=== PATIENT | male | born 1990 | race Caucasian/White ===

== ENCOUNTER 2017-07-09 01:48 | Emergency (ER) | payer BC, OTHER ==
[~2017-07-09] VITALS: Ht 185.4 cm; Wt 65.8 kg
--- NOTE | 2017-07-09 01:51 | ER Report ---
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 He believes he contracted it approximately 4 days ago. His symptoms got better. He began to refeeding began vomiting again tonight. He developed severe right upper quadrant pain which is unrelieved with Tylenol. Patient has a history of Gilbert's syndrome. Patient notes chills but no fever. He's had no diarrhea. REVIEW OF SYSTEMS: Respiratory: No cough, no dyspnea. Cardiovascular: No chest pain, no palpitations. Gastrointestinal: As above Musculoskeletal: No back pain. Allergies: Coded Allergies: sulfamethoxazole (Verified Allergy, Intermediate, HIVES, 07/09/17) trimethoprim (Verified Allergy, Intermediate, HIVES, 07/09/17) Home Meds Active Scripts Ondansetron Hcl (ZOFRAN) 4 Mg Tablet, 4 MG PO Q6H Y for NAUSEA/VOMITING, #12 Prov:ZACH OROSCO DO 07/09/17 Reviewed Nurses Notes: Yes Old Medical Records Reviewed: Yes Hx Smoking: No Hx Substance Use Disorder: No Hx Alcohol Use: No Constitutional Vital Sign - Last 24 Hours 07/09/17 07/09/17 07/09/17 07/09/17 01:52 02:00 02:03 02:18 Temp 98.7 Pulse 86 76 76 Resp 16 B/P (MAP) 122/81 116/73 (87) Pulse Ox 99 100 99 07/09/17 07/09/17 07/09/17 07/09/17 02:30 02:50 03:00 03:05 Pulse 80 ??? B/P (MAP) 110/71 (84) 109/68 (82) Pulse Ox 99 100 Physical Exam General Appearance: The patient is alert, has no immediate need for airway protection and no current signs of toxicity.. Vital signs stable, afebrile, pulse ox normal, skin pale but warm and dry HEENT: Pupils equal and round no injection. Oropharynx with mild erythema, mucous. Membranes are dry Respiratory: Chest is non tender, lungs are clear to auscultation. Cardiac: regular rate and rhythm Gastrointestinal: Abdomen is soft, mild right upper quadrant tenderness, equivocal Willett sign, no masses, bowel sounds decreased. Musculoskeletal: Neck: Neck is supple and non tender. Extremities have full range of motion and are non tender. Skin: No rashes or lesions. DIFFERENTIAL DIAGNOSIS: After history and physical exam differential diagnosis was considered for abdominal pain including but not limited to appendicitis, cholecystitis, gastritis, gastroenteritis, and urinary tract infection. Medical Decision Making Data Points Result Diagram: 07/09/17 0150 07/09/17 0150 Laboratory Hematology Test 07/09/17 01:50 Red Blood Count 5.49 M/uL (4.00-5.60) Mean Corpuscular Volume 90.5 fL (80.0-96.0) Mean Corpuscular Hemoglobin 31.0 pg (26.0-33.0) Mean Corpuscular Hemoglobin Concent 34.2 g/dL (32.0-36.0) Red Cell Distribution Width 12.9 % (11.5-14.5) Mean Platelet Volume 9.8 fL (7.2-11.1) Neutrophils (%) (Auto) 84.2 % (39.4-72.5) Lymphocytes (%) (Auto) 3.9 % (17.6-49.6) Monocytes (%) (Auto) 9.8 % (4.1-12.4) Eosinophils (%) (Auto) 1.1 % (0.4-6.7) Basophils (%) (Auto) 1.0 % (0.3-1.4) Nucleated RBC Relative Count (auto) 0.0 /100WBC Neutrophils # (Auto) 5.5 K/uL (2.0-7.4) Lymphocytes # (Auto) 0.3 K/uL (1.3-3.6) Monocytes # (Auto) 0.6 K/uL (0.3-1.0) Eosinophils # (Auto) 0.1 K/uL (0.0-0.5) Basophils # (Auto) 0.1 K/uL (0.0-0.1) Nucleated RBC Absolute Count (auto) 0.00 K/uL Urine Color Yellow Urine Clarity Clear Urine pH 5.0 pH (4.8-9.5) Urine Specific [place] 1.024 Urine Protein Negative mg/dL (NEGATIVE) Urine Glucose (UA) Negative mg/dL (NEGATIVE) Urine Ketones 20 mg/dL (NEGATIVE) Urine Blood Negative (NEGATIVE) Urine Nitrite Negative (NEGATIVE) Urine Bilirubin Negative (NEGATIVE) Urine Urobilinogen 2.0 mg/dL (0.2-1.9) Urine Leukocyte Esterase Negative (NEGATIVE) Urine RBC 1 /HPF (0-2/HPF) Urine WBC 1 /HPF (0-5/HPF) Urine Squamous Epithelial Cells None /LPF (</=FEW) Urine Bacteria Negative /HPF (NONE-FEW) Urine Mucus Few /HPF (NONE-FEW) Sodium Level 130 mmol/L (137-145) Potassium Level 3.1 mmol/L (3.5-5.0) Chloride Level 93 mmol/L (98-107) Carbon Dioxide Level 24 mmol/L (22-30) Blood Urea Nitrogen 15 mg/dl (9-21) Creatinine 0.90 mg/dl (0.66-1.25) Glomerular Filtration Rate Calc > 60.0 Random Glucose 131 mg/dl (75-110) Calcium Level 8.9 mg/dl (8.4-10.2) Total Bilirubin 2.3 mg/dl (0.2-1.3) Aspartate Amino Transf (AST/SGOT) 119 U/L (0-35) Alanine Aminotransferase (ALT/SGPT) 111 U/L (0-56) Alkaline Phosphatase 90 U/L (0-126) Total Protein 7.3 gm/dl (6.3-8.2) Albumin 4.3 g/dl (3.5-5.0) Amylase Level 80 U/L (0-110) Lipase 95 U/L (23-300) Chemistry Test 07/09/17 01:50 White Blood Count 6.5 k/uL (4.5-11.0) Red Blood Count 5.49 M/uL (4.00-5.60) Hemoglobin 17.0 g/dL (14.0-18.0) Hematocrit 49.7 % (42.0-52.0) Mean Corpuscular Volume 90.5 fL (80.0-96.0) Mean Corpuscular Hemoglobin 31.0 pg (26.0-33.0) Mean Corpuscular Hemoglobin Concent 34.2 g/dL (32.0-36.0) Red Cell Distribution Width 12.9 % (11.5-14.5) Platelet Count 199 K/uL (150-450) Mean Platelet Volume 9.8 fL (7.2-11.1) Neutrophils (%) (Auto) 84.2 % (39.4-72.5) Lymphocytes (%) (Auto) 3.9 % (17.6-49.6) Monocytes (%) (Auto) 9.8 % (4.1-12.4) Eosinophils (%) (Auto) 1.1 % (0.4-6.7) Basophils (%) (Auto) 1.0 % (0.3-1.4) Nucleated RBC Relative Count (auto) 0.0 /100WBC Neutrophils # (Auto) 5.5 K/uL (2.0-7.4) Lymphocytes # (Auto) 0.3 K/uL (1.3-3.6) Monocytes # (Auto) 0.6 K/uL (0.3-1.0) Eosinophils # (Auto) 0.1 K/uL (0.0-0.5) Basophils # (Auto) 0.1 K/uL (0.0-0.1) Nucleated RBC Absolute Count (auto) 0.00 K/uL Urine Color Yellow Urine Clarity Clear Urine pH 5.0 pH (4.8-9.5) Urine Specific [place] 1.024 Urine Protein Negative mg/dL (NEGATIVE) Urine Glucose (UA) Negative mg/dL (NEGATIVE) Urine Ketones 20 mg/dL (NEGATIVE) Urine Blood Negative (NEGATIVE) Urine Nitrite Negative (NEGATIVE) Urine Bilirubin Negative (NEGATIVE) Urine Urobilinogen 2.0 mg/dL (0.2-1.9) Urine Leukocyte Esterase Negative (NEGATIVE) Urine RBC 1 /HPF (0-2/HPF) Urine WBC 1 /HPF (0-5/HPF) Urine Squamous Epithelial Cells None /LPF (</=FEW) Urine Bacteria Negative /HPF (NONE-FEW) Urine Mucus Few /HPF (NONE-FEW) Glomerular Filtration Rate Calc > 60.0 Calcium Level 8.9 mg/dl (8.4-10.2) Total Bilirubin 2.3 mg/dl (0.2-1.3) Aspartate Amino Transf (AST/SGOT) 119 U/L (0-35) Alanine Aminotransferase (ALT/SGPT) 111 U/L (0-56) Alkaline Phosphatase 90 U/L (0-126) Total Protein 7.3 gm/dl (6.3-8.2) Albumin 4.3 g/dl (3.5-5.0) Amylase Level 80 U/L (0-110) Lipase 95 U/L (23-300) Urinalysis Test 07/09/17 01:50 Urine Color Yellow Urine Clarity Clear Urine pH 5.0 pH (4.8-9.5) Urine Specific [place] 1.024 Urine Protein Negative mg/dL (NEGATIVE) Urine Glucose (UA) Negative mg/dL (NEGATIVE) Urine Ketones 20 mg/dL (NEGATIVE) Urine Blood Negative (NEGATIVE) Urine Nitrite Negative (NEGATIVE) Urine Bilirubin Negative (NEGATIVE) Urine Urobilinogen 2.0 mg/dL (0.2-1.9) Urine Leukocyte Esterase Negative (NEGATIVE) Urine RBC 1 /HPF (0-2/HPF) Urine WBC 1 /HPF (0-5/HPF) Urine Squamous Epithelial Cells None /LPF (</=FEW) Urine Bacteria Negative /HPF (NONE-FEW) Urine Mucus Few /HPF (NONE-FEW) ED Course/Re-evaluation Clinical Indication for ER IV: Hydration, IV Access ED Course Patient was admitted to an examination room. H&P was done. The differential diagnoses was considered. On clinical examination. Patient has a benign nonsurgical abdomen. He has a questionable Willett's sign in the right upper quadrant. Diagnostic laboratory studies show mild elevation of LFTs and elevated total bili consistent with his previous history of Gilbert's disease. His white blood cell count is normal. There is no left shift to suggest a bacterial infection. Urinalysis is unremarkable except for some ketones. The specific gravity is elevated. Patient feels much better after IV fluid hydration, Zofran, Toradol, fentanyl. His color has returned. Patient's given a trial of oral fluids and is able to keep down a glass of water. He is discharged home on Zofran and ibuprofen and Tylenol for pain relief. He declined prescription for Percocet. Advised follow-up with internal medicine clinic for outpatient ultrasound of his right upper quadrant. Decision to Disposition Date: Jul 09, 2017 Decision to Disposition Time: 02:38 Depart Departure Latest Vital Signs Vital Signs Date Time Temp Pulse Resp B/P (MAP) Pulse Ox O2 Delivery O2 Flow Rate FiO2 07/09/17 03:05 ??? 100 07/09/17 03:00 109/68 (82) 07/09/17 01:52 98.7 16 Impression: Primary Impression: Right upper quadrant abdominal pain Additional Impressions: Vomiting Gilbert disease Hyponatremia Hypokalemia Condition: Improved Disposition: HOME OR SELF-CARE Referrals: ELSIEO WILD MD, FARRUKH MD New Scripts Ondansetron Hcl (ZOFRAN) 4 Mg Tablet 4 MG PO Q6H Y for NAUSEA/VOMITING, #12 Prov: ZACH OROSCO DO 07/09/17 Patient Instructions: Acute Abdominal Pain (ED), Clear Liquid Diet (ED) Additional Instructions: Follow clear liquid diet for 24-48 hours. Advance as tolerated to the brat diet , bananas, rice, applesauce, toast Follow-up with Dr. Wild or Wiliam in 2-4 days for follow-up and ordering an gallbladder ultrasound Problem Qualifiers Additional Impressions: Vomiting Vomiting type: unspecified Vomiting Intractability: intractable Nausea presence: unspecified Qualified Codes: R11.10 - Vomiting, unspecified ZACH OROSCO DO Jul 09, 2017 01:51
[2017-07-09] MEDS ORDERED: NS(*) 0.9% 1000 ML BAG 1,000 ML IV ONE (02:09)
[2017-07-09] MEDS ORDERED: fentaNYL CITR 100 MCG/2 ML AMP IVP ONE (02:10)
[2017-07-09] MEDS ORDERED: KETOROLAC 30 MG/ML VIAL IVP ONE (02:10)
[2017-07-09] MEDS ORDERED: ONDANSETRON 4 MG/2 ML VIAL IVP ONE (02:10)
[2017-07-09 02:17] LABS: PLATELET COUNT, AUTOMATED 199 K/uL (150-450)
[2017-07-09] MEDS ORDERED: ONDA4TAB97 PO (02:44)
[2017-07-09 03:00] VITALS: BP 109/68
[2017-07-09] MEDS ORDERED: ONDANSETRON 4 MG ODT TH SL ONE (03:00)
== END 2017-07-09 03:14 | disposition home or self-care (01) ==
LOC: ER 02:18
DX: E80.4 Gilbert syndrome (principal); R10.11 Right upper quadrant pain; E87.6 Hypokalemia; E87.1 Hypo-osmolality and hyponatremia
CPT/HCPCS: 81001; 82150; 83690; 85025; 96361; 96374; 96375; 99284; J1885; J2405; J3010; J7030; S0119; 82040; 82247; 82310; 82374; 82435; 82565; 82947; 84075; 84132; 84155; 84295; 84450; 84460; 84520

== ENCOUNTER → 2017-07-12 | Outpatient (CLI) | payer OTHER ==
[~2017-07-12] MED LIST: NAPR220C11 PO; ONDA4TAB97 PO
== END ==
LOC: LAB 09:05
PROVIDERS: ATTEND Emergency Medicine
DX: R10.9 Unspecified abdominal pain (principal)
CPT/HCPCS: 36415; 82040; 82247; 82310; 82374; 82435; 82565; 82947; 84075; 84132; 84155; 84295; 84450; 84460; 84520

== ENCOUNTER → 2017-07-17 | Outpatient (CLI) | payer OTHER ==
--- NOTE | 2017-07-17 14:16 | RADIOLOGY IMAGING REPORT ---
[place] [facility] [place] Semaj Nj : 1990 MR: [id number] V: [id number] EXAM DATE: ORDERING PHYSICIAN: ELISEO DUGAN TECHNOLOGIST: Location: [facility] Patient: Semaj Nj : 1990 Visit/Account:[id number] Date of Sevice: 07/17/2017 GALLBLADDER HISTORY: Abdominal pain COMPARISON: None. FINDINGS: Gallbladder: There appears to be a small amount of sludge within the gallbladder. There is a negativ e Willett sign by technologist notation. The gallbladder wall measures 2.7 mm in thickness Liver: Negative. Common duct: Normal, 4.9 mm diameter. Pancreas: Partially obscured by bowel, visualized aspects unremarkable. Right kidney: Unremarkable as imaged measuring 9.3 cm in length Upper abdominal aorta and IVC: Patent. Ascites: None visualized. IMPRESSION: Small amount of gallbladder sludge although no evidence of gallbladder wall thickening biliary ductal dilatation or positive Willett sign Report Dictated By: Carli Nelson MD at 07/17/2017 2:11 PM Report E-Signed By: Carli Nelson MD at 07/17/2017 2:13 PM WSN:[email or web address]
== END ==
LOC: US 01:41
PROVIDERS: ATTEND Emergency Medicine
DX: K80.00 Calculus of gallbladder with acute cholecystitis without obstruction (principal)
CPT/HCPCS: 76705

== ENCOUNTER 2019-02-13 16:32 | Emergency (ER) | payer OTHER ==
[~2019-02-13 16:32] MED LIST changes: -NAPR220C11 PO; +NAPR220C62 PO
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
[2019-02-13] MEDS ORDERED: SERT-184 PO (16:38)
[2019-02-13 17:30] VITALS: BP 130/46
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
== END 2019-02-13 17:58 | disposition home or self-care (01) ==
LOC: ER 16:39
DX: S39.012A Strain of muscle, fascia and tendon of lower back, initial encounter (principal); M54.2 Cervicalgia; V49.60XA Unspecified car occupant injured in collision with unspecified motor vehicles in traffic accident, initial encounter
CPT/HCPCS: 70450; 72072; 72120; 72125; 99284; L0172